=== PATIENT | male | born 1980 | race Caucasian/White ===

== ENCOUNTER 2018-03-18 01:55 | Emergency (ER) | payer SELFPAY ==
[~2018-03-18] VITALS: Ht 167.6 cm; Wt 69.2 kg
[2018-03-18 01:58] VITALS: BP 124/83
--- NOTE | 2018-03-18 02:00 | NUR ---
PT AMBULATED TO BED 11
[2018-03-18] MEDS ORDERED: ONDANSETRON 4 MG ODT PO ONE (02:05)
[2018-03-18] MEDS ORDERED: NACL 0.9% 1,000 ML IV ONE (02:05)
--- NOTE | 2018-03-18 02:05 | NUR ---
Note queta in EDM - 03/18/18 at 0222 by [email or web address] 37 Y/O M W/C/O ABD PAIN, NAUSEA, AND VOMITIMING X YESTERDAY S/P DRINKING ALCOHOL. MED HX ULCERS IN STOMACH. [facility]LY [facility] MADE AWARE.
--- NOTE | 2018-03-18 02:05 | NUR ---
37 Y/O M W/C/O ABD PAIN, NAUSEA, AND VOMITING X YESTERDAY S/P DRINKING ALCOHOL. MED HX ULCERS IN STOMACH AND ANXIETY. ER MD MADE AWARE.
[2018-03-18] MEDS ORDERED: LORazepam 2 MG/ML VIAL IVP ONE (02:15)
[2018-03-18 02:21] LABS: APPEARANCE,URINE CLEAR (CLEAR); BILIRUBIN,URINE NEGATIVE (NEGATIVE); BLOOD, URINE TRACE-I (NEGATIVE); COLOR,URINE YELLOW (YELLOW); LEUKOCYTE ESTERASE ,URINE NEGATIVE (NEGATIVE); NITRITE, URINE NEGATIVE (NEGATIVE); UGLUCOSE NEGATIVE (NEGATIVE)
[2018-03-18 02:22] LABS: HEMATOCRIT 54.5 % (36-52); HEMOGLOBIN 16.8 g/dL (12.0-18.0); MEAN CORPUSCULAR HEMOGLOBIN 30 pg (27-31); MEAN CORPUSCULAR HGB CONC 31 g/dL (33-37); PLATELET COUNT (AUTO) 174 K/uL (140-450); RED BLOOD CELL COUNT(AUTO) 5.68 MIL/uL (4.20-6.10); RED CELL DISTRIBUTION WIDTH 12.5 % (11.6-13.7); WHITE BLOOD COUNT (AUTO) 17.5 K/uL (4.8-10.8)
[2018-03-18 02:31] LABS: RBC,URINE 0-5 (RARE) /HPF (0-5); WBC,URINE 0-5 (RARE) /HPF (0-5)
[2018-03-18 02:32] LABS: ANION GAP 19.1 (8-16); CARBON DIOXIDE 23.7 mmol/L (21-32); CREATININE 0.8 mg/dL (0.7-1.3); POTASSIUM 3.8 mmol/L (3.5-5.1)
[2018-03-18 02:34] LABS: LYMPHOCYTES % (MANUAL) 13 % (20-46); MONOCYTES % (MANUAL) 3 % (5-12)
[2018-03-18 02:37] LABS: ALBUMIN 5.1 g/dL (3.4-5.0)
--- NOTE | 2018-03-18 02:37 | NUR ---
PT LAYING IN BED, IN NO APPARENT DISTRESS AT THIS TIME.
[2018-03-18] MEDS ORDERED: PANTOPRAZOLE 40 MG INJ VIAL IVP ONE (02:45)
[2018-03-18 03:14] VITALS: BP 132/65
--- NOTE | 2018-03-18 03:15 | NUR ---
Patient discharged with v/s stable. Written and verbal after care instructions given and explained. Patient alert, oriented and verbalized understanding of instructions. Ambulatory with steady gait. All questions addressed prior to discharge. ID band removed. Patient advised to follow up with PMD. Rx of ZANTAC given. Patient educated on indication of medication including possible reaction and side effects. Opportunity to ask questions provided and answered.
== END 2018-03-18 03:15 | disposition home or self-care (01) ==
LOC: MED 01:55
DX: K29.20 Alcoholic gastritis without bleeding (principal)
CPT/HCPCS: 36415; 80053; 81001; 83690; 85025; 96374; 99284; G0482; J2060; J7030; S0119